=== PATIENT | female | born 1990 | race Caucasian/White ===

== ENCOUNTER → 2018-04-28 17:02 | Outpatient (CLI) | payer MEDICAID, SELFPAY ==
--- NOTE | 2018-04-28 17:12 | MRI_ITS ---
HISTORY: RT HEARING LOSS, TINNITUSx 3 months TECHNIQUE: Multiplanar and multisequence MR images of the brain and small field of view sequences of the internal auditory canals were obtained before and after the administration of IV contrast. IV Contrast dosage and agent: 7 cc Gadavist COMPARISON: None FINDINGS: # of images incl. paperwork: [id number] BILATERAL TEMPORAL BONES: SUPERFICIAL SOFT TISSUES: Unremarkable. MASTOID AIR CELLS: Well aerated, unremarkable. EXTERNAL AUDITORY CANALS AND MIDDLE EAR CAVITIES: Well aerated. INTERNAL AUDITORY CANALS: Unremarkable bilateral internal auditory canals. No intracanalicular schwannoma. INNER EAR: Unremarkable cochlea, vestibule and semicircular canals. CONTRAST: No abnormal enhancement of CN VII or VIII. VISUALIZED BRAIN AND POSTERIOR FOSSA: Cerebello-pontine angles are unremarkable. MRI BRAIN: No infarct, hemorrhage, or mass. No abnormal intracranial enhancement. Major flow voids preserved. Normal signal and volume of the brain. MRI/Brain W/WO Contrast IMPRESSION: Unremarkable MRI of the brain and temporal bones with and without gadolinium. No etiology for the patient's symptoms identified. at 0230 Reported and signed by: Dario Monterroso MD Electronically Signed: Dario Monterroso, at 2:29 EST Tel , Service support ,
== END ==
PROVIDERS: Referring Provider Otolaryngology Otolaryngology/Facial Plastic Surgery; Visit Provider Otolaryngology Otolaryngology/Facial Plastic Surgery
DX: H91.91 Unspecified hearing loss, right ear (principal); H93.11 Tinnitus, right ear
CPT/HCPCS: 70553; A9585

== ENCOUNTER → 2018-05-02 11:39 | Outpatient (CLI) | payer MEDICAID, SELFPAY ==
[2018-05-02 12:25] LABS: Potassium 4.3 mmol/L (3.5-5.1)
== END ==
PROVIDERS: Referring Provider Otolaryngology Otolaryngology/Facial Plastic Surgery; Visit Provider Otolaryngology Otolaryngology/Facial Plastic Surgery
DX: Z79.899 Other long term (current) drug therapy (principal)
CPT/HCPCS: 36415; 84132